=== PATIENT | female | born 1985 | race Caucasian/White ===

== ENCOUNTER 2018-10-31 12:39 | Inpatient (IN) | payer MEDICAID, OTHER ==
[2018-10-31] MEDS ORDERED: LACTATED RINGERS 500 ML IV ONE (13:02)
[2018-10-31 13:41] LABS: Bacteria,Urine 3+ /HPF (Negative); Bilirubin,Urine NEG (Negative); Blood,Urine NEG (Negative); Color,Urine Yellow (Yellow); Protein,Urine <15 mg/dL mg/dL (Negative); Urobilinogen,Urine < 2.0 mg/dL (<2.0)
[2018-10-31 14:06] LABS: Hematocrit 38.7 % (30.3-42.9); Hemoglobin 12.8 gm/dl (10.1-14.3); Mean Corpuscular HGB Conc 33 % (30-34); Mean Corpuscular Volume 91 fl (79-97); Red Blood Count 4.26 M/mm3 (3.65-5.03); Red Cell Distribution Width 15.6 % (13.2-15.2)
[2018-10-31 14:28] LABS: Alanine Aminotransferase 34 units/L (7-56); Uric Acid 5.6 mg/dL (3.5-7.6)
[2018-10-31 14:36] LABS: Platelet Count 143 K/mm3 (140-440)
[2018-10-31] MEDS ORDERED: BRETHINE SUB-Q PRN (15:02)
[2018-10-31] MEDS ORDERED: MINERAL OIL PO PRN (15:02)
[2018-10-31] MEDS ORDERED: BRETHINE IVP PRN (15:02)
[2018-10-31] MEDS ORDERED: XYLOCAINE 2% INFILTRATI ONE (15:02)
--- NOTE | 2018-10-31 15:19 | History and Physical Report ---
History of Present Illness Date of examination: 10/31/18 Date of admission: 10/31/18 Chief complaint: SIUP at 37 weeks and 4 days gestation not in labor. Cholestasis of . Previous C/section x 3. History of present illness: Patient is a 33 year old , LMP 02/10/18, EDC 11/17/18 at 37 weeks and 4 days gestation who was sent from [facility] for elevated BP and diffuse body itching. As per the patient, she started to have itching 2 weeks ag o that involves her palms and soles. Her bile acids were elevated 2 days ago. She also has gestational HTN. She denies any headache, visual changes or RUQ pain. She complains of decreased movement. Past History Past Medical History: no pertinent history Past Surgical History: section Family/Genetic History: none Social history: no significant social history - Obstetrical History Expected Date of Delivery: 11/17/18 Actual Gestation: 37 Week(s) 6 Day(s) : 4 Para: 3 Hx # Term Pregnancies: 2 Number of Pregnancies: 1 Number of Living Children: 3 #1 Gender: Male year: 2,[birth year] Birthweight: 1.956 kg Method of Delivery: (For pre-eclampsia) Gestational age at delivery: 35 #2 Infant Gender: Female year: 2,014 Birthweight: 3.43 kg Method of Delivery: Gestational age at delivery: 39 Complications: none #3 Gender: Male year: 2,016 Birthweight: 3.345 kg Method of Delivery: Gestational age at delivery: 39 Complications: none Medications and Allergies Allergies Allergy/AdvReac Type Severity Reaction Status Date / Time No Known Allergies Allergy Verified 10/26/18 14:49 Home Medications Medication Instructions Recorded Confirmed Last Taken Type No115/Iron/Folic Acid 1 tab PO DAILY 06/24/14 06/24/14 06/23/14 09:00 History [ 19 Chewable Tablet] Ibuprofen [Motrin 600 MG tab] 600 mg PO Q6H PRN #30 tablet 06/26/14 Unknown Rx oxyCODONE /ACETAMINOPHEN [Percocet 2 tab PO Q4H PRN #30 tablet 06/26/14 Unknown Rx 5/325 mg] Ferrous Sulfate [Feosol 325 MG tab] 325 mg PO BID #60 tablet 07/15/16 Unknown Rx Ibuprofen [Motrin 800 MG tab] 800 mg PO Q8HR PRN #30 tablet 07/15/16 Unknown Rx oxyCODONE /ACETAMINOPHEN [Percocet 1 tab PO Q6HR #30 tablet 07/15/16 Unknown Rx 5/325] Ferrous Sulfate [Feosol 325 MG tab] 325 mg PO BID #60 tablet 10/31/18 Unknown Rx HYDROcodone/APAP 5-325 [[place] 1 each PO Q6HR PRN #30 tablet 10/31/18 Unknown Rx 5/325] Ibuprofen [Motrin] 800 mg PO Q8HR PRN #30 tablet 10/31/18 Unknown Rx Pnv No.95/Ferrous Fum/Folic AC 1 each PO DAILY #30 tablet 10/31/18 Unknown Rx [Prenavite Tablet] Active Meds: Active Medications Lactated Ringer's (Lactated Ringers) 1,000 mls @ 125 mls/hr IV DIRECT FARHAD Oxytocin/Sodium Chloride (Pitocin/Ns 30 Unit/500ml) 30 units in 500 mls @ 1 mls/hr IV TITR FARHAD; Protocol Lidocaine (Xylocaine 2%) 20 ml INFILTRATI ONCE ONE Stop: 10/31/18 15:03 Mineral Oil (Mineral Oil) 30 ml PO QHS PRN PRN Reason: Constipation Terbutaline Sulfate (Brethine) 0.25 mg SUB-Q ONCE PRN PRN Reason: Hyperstimulation/Hypertonicity Terbutaline Sulfate (Brethine) 0.25 mg IVP ONCE PRN PRN Reason: Hyperstimulation/Hypertonicity - Vital Signs Vital signs: Vital Signs Pulse BP 83 127/87 10/31/18 13:15 10/31/18 13:15 Temp Pulse Resp BP Pulse Ox 98.1 F 81 20 124/74 10/31/18 13:17 10/31/18 14:15 10/31/18 13:17 10/31/18 14:15 - Physical Exam Cardiovascular: Normal S1, Normal S2 Lungs: Positive: Clear to auscultation Vulva: both: normal Deep Tendon Reflex Grade: Normal +2 - Obstetrical FHR: category 1 Uterine Contraction Monitor Mode: External Cervical Dilatation: 0 Cervical Effacement Percentage: 0 station: -3 Uterine Contraction Pattern: Absent Results Result Diagrams: 11/01/18 07:58 10/31/18 13:36 Abnormal lab results 10/31/18 10/31/18 Range/Units 13:36 13:36 RDW 15.6 H (13.2-15.2) % Creatinine 0.6 L (0.7-1.2) mg/dL Lactate Dehydrogenase 207 H (91-180) units/L All other labs normal. Assessment and Plan - Patient Problems (1) 37 weeks gestation of Current Visit: Yes Status: Acute (2) Cholestasis of Current Visit: Yes Status: Acute Plan to address problem: Admit patient to labor floor. IV hydration. Toxemia labs. Monitor BP. monitoring. Sonogram showed BPP 8/8. Patient was told that she has cholestasis of and she needs to be delivered since this diagnosis carries a high risk of demise regardless of normal surveillance. She is admitted for repeat C/section. Risk and benefits of the procedure were discussed with her such as infection, hemorrhage requiring blood transfusion, injury to the bowel, bladder and blood vessels. She expressed understanding, her questions were answered, she gave her informed co nsent. Keep NPO. (3) Gestational HTN Current Visit: Yes Status: Acute Plan to address problem: Monitor BP. If BP becomes unstable or patient develops signs of pre-eclampsia, will give magnesium sulfate. (4) Anemia Current Visit: No Status: Acute Qualifiers: Other causes of anemia: other cause, not classified (5) Previous section Current Visit: No Status: Acute Plan to address problem: For repeat C/section.
--- NOTE | 2018-10-31 15:21 | Ultrasound Report ---
OB LIMITED INDICATION: well being. Evaluate LOU. COMPARISON: None similar. TECHNIQUE: Transabdominal grayscale ultrasound with Doppler interrogation. Gestation: Patrick Position: Cephalic Amniotic Fluid: WNL (7-24 cm) LOU = 15.2 cm Heart Rate: 137 BPM CONCLUSION: Findings, as above.
--- NOTE | 2018-10-31 15:22 | Ultrasound Report ---
BIOPHYSICAL PROFILE: INDICATION: well being. COMPARISON: None similar at this institution. TECHNIQUE: Transabdominal ultrasound with Doppler interrogation. 2 - breathing movements 2 - movements 2 - posture and tone 2 - Qualitative amniotic fluid volume 8 - TOTAL SCORE OF POSSIBLE 8 Heart Rate (bpm) 137 CONCLUSION: Findings, as above.
[2018-10-31] MEDS ORDERED: LACTATED RINGERS 1,000 ML IV SCH ×3 (16:00→20:00)
[2018-10-31] MEDS ORDERED: PITOCin/NS 30 UNIT/500ML 30 UNITS/500 ML BAG IV SCH (16:00)
[2018-10-31] MEDS ORDERED: PEPCID IV ONE ×2 (17:34→19:20)
[2018-10-31] MEDS ORDERED: REGLAN IV ONE ×2 (17:34→19:20)
[2018-10-31] MEDS ORDERED: BICITRA PO ONE ×2 (17:34→19:20)
[2018-10-31] MEDS ORDERED: PITOCin/NS 20 UNIT/1000ML DRIP 20 UNITS/1,000 ML BAG IV SCH ×3 (18:00→21:00)
[2018-10-31] MEDS ORDERED: ANCEF/STERILE WATER 2 GM/20 ML 2 GM/20 ML SYRINGE IV ONE (19:24)
[2018-10-31] MEDS ORDERED: ANCEF/STERILE WATER 2 GM/20 ML 2 GM/20 ML SYRINGE IV NR (20:00)
[2018-10-31] MEDS ORDERED: ZOFRAN ONE (20:33)
[2018-10-31] MEDS ORDERED: DECADRON ONE (20:33)
[2018-10-31] MEDS ORDERED: NEO SYNEPHRINE/NS Syringe(OR USE) IV ONE (20:33)
--- NOTE | 2018-10-31 20:51 | Operative Report ---
Operative Report Operative Report: Date of procedure: 10/31/2018 Pre-operative diagnosis: 1. Intrauterine at 37-4/7 weeks 2. Choles tasis of 3. Previous 3 4. Gestational hypertension Post-operative diagnosis: Same Procedure name(s): Repeat low transverse section Surgeon: Vinod Wilkes MD Col[place] Gluer: None Anesthesia: Spinal anesthesia by Dr. Rodriguez EBL: 300 mls Findings: A 3259 g female Apgars 8 at 1 minute 9 at 5 minutes. Clear amniotic fluid. Nuchal cord 1. Normal uterus. Normal tubes and ovaries bilaterally. Procedure: After the patient was prepped and draped in usual sterile fashion, and after satisfactory level of epidural anesthesia was obtained, the skin knife was used to make a transverse skin incision through the previous skin scars. The incision was excised down to layer of the fascia, which was nicked in the midline and extended laterally using the Bovie cautery. The rectus muscles were dissected off the rectus fascia both superiorly and inferiorly. The rectus bellies in the midline, and the peritoneum was entered under direct visualization. The peritoneal incision was extended superiorly and inferiorly. A bladder flap was created and the bladder blade was then placed. The uterus was scored in a curvilinear linear fashion, entered in the midline revealing clear amniotic fluid. The 's head was delivered onto the surgical field with the aid of a vacuum, nuchal cord 1 easily reduced and the oropharynx and nasopharynx were bulb suctioned. The rest of the 's body was delivered, cord was doubly clamped and cut and the infant was handed to the waiting respiratory team. The placenta was manually removed from the uterus, and the uterus removed from its normal anatomical position. After gentle uterine lavage, the incision was inspected and found to be without extensions. It was then closed in 2 layers using 0 Vicryl suture in a running interlocking fashion, the second layer imbricating the first. After good hemostasis was achieved, copious amounts or irrigation was performed, and the gutters were suctioned free of blood and blood clots. The uterus was then returned to its normal anatomical position, and after excellent hemostasis assured, the peritoneum was re- approximated using 3-0 Vicryl suture in a running interlocking fashion, and then the rectus muscles were reapproximated using 3-0 Vicryl suture in a [id number] configuration. The fascia was then re-approximated using 0 Vicryl suture in running interlocking fashion. The subcutaneous layer was made hemostatic using Bovie cautery and the skin edges re-approximated using 4-0 Vicryl suture in a sub-cuticular fashion. Patient tolerated the procedure well was transported to recovery in stable condition.
[2018-10-31] MEDS ORDERED: MILK OF MAGNESIA PO PRN (20:54)
[2018-10-31] MEDS ORDERED: TUCKS PAD TP PRN (20:54)
[2018-10-31] MEDS ORDERED: NARCAN 0.4 MG/1 ML IV PRN (20:54)
[2018-10-31] MEDS ORDERED: PHENERGAN PR PRN (20:54)
[2018-10-31] MEDS ORDERED: ANUCORT-HC PR PRN (20:54)
[2018-10-31] MEDS ORDERED: MYLICON PO PRN (20:54)
[2018-10-31] MEDS ORDERED: TYLENOL PO PRN (20:54)
[2018-10-31] MEDS ORDERED: LANSINOH TP PRN (20:54)
[2018-10-31] MEDS ORDERED: SENOKOT PO PRN (20:54)
[2018-10-31] MEDS ORDERED: ZOFRAN IV PRN (20:54)
[2018-10-31] MEDS ORDERED: SODIUM CHLORIDE FLUSH SYRINGE 10 ML IV PRN (21:00)
[2018-10-31] MEDS: TORADOL IV PRN (22:27)
[2018-10-31] MEDS: D5LR 1,000 ML IV SCH (22:28)
[2018-11-01] MEDS: TORADOL IV PRN (03:17)
[2018-11-01] MEDS: ANCEF/NS 1 GM/50 ML 1 GM/50 ML BAG IV SCH ×2 (03:18→11:29)
[2018-11-01] MEDS: D5LR 1,000 ML IV SCH ×2 (06:11→14:52)
[2018-11-01 08:09] LABS: Hematocrit 37.2 % (30.3-42.9); Hemoglobin 12.4 gm/dl (10.1-14.3)
[2018-11-01] MEDS: PRENATAL VITAMIN PO SCH (10:01)
[2018-11-01] MEDS: FEOSOL PO SCH (10:01)
--- NOTE | 2018-11-01 10:20 | Progress Note ---
Assessment and Plan A: POD#1 s/p Repeat c/s Pain well controlled Stable P: Continue PP/PO orders Encouraged ambulation in room Advance diet as tolerated Subjective - Subjective Date of service: 11/01/18 Principal diagnosis: POD#1 s/p repeat C/S Interval history: See H&P and operative note Patient reports: appetite normal, voiding normally, pain well controlled, flatus, ambulating normally, no bowel movement : doing well, other (breast/bottle) Objective - Vital Signs Latest vital signs: Vital Signs Temp Pulse Resp BP BP Pulse Ox 11/01/18 08:06 98.6 F 64 18 140/72 96 11/01/18 04:56 97.9 F 71 16 136/72 96 11/01/18 03:17 18 10/31/18 22:27 18 10/31/18 22:02 98.7 F 94 H 20 150/86 98 10/31/18 21:44 90 18 154/78 100 10/31/18 21:34 98 F 94 H 17 152/82 100 10/31/18 21:19 97 H 16 151/80 100 10/31/18 21:14 101 H 18 137/60 100 10/31/18 21:09 101 H 18 143/77 100 10/31/18 21:04 98.2 F 104 H 14 141/80 100 10/31/18 18:02 86 160/88 10/31/18 14:15 81 124/74 10/31/18 13:59 78 119/78 10/31/18 13:45 92 H 118/75 10/31/18 13:29 87 128/88 10/31/18 13:17 98.1 F 83 20 127/87 10/31/18 13:15 83 127/87 Intake and Output 10/31/18 11/01/18 11/01/18 23:59 07:59 15:59 Intake Total 100 1204.583 360 Output Total 400 1300 Balance -300 -95.417 360 Intake: IV 100 964.583 D5lr 1,000 ml @ 125 mls/ 964.583 hr IV DIRECT FARHAD Rx#: [id number] Intake, Free Water 240 360 Output: Urine 400 1300 Indwelling Catheter 1300 Uretheral (Malcolm) 200 Other: Total, Output Amount 1300 - Exam Breasts: Present: normal, Cardiovascular: Present: Regular rate, Normal S1, Normal S2, No murmurs Lungs: Present: Clear to auscultation, Normal air movement Abdomen: Present: normal appearance, soft, tenderness (as expected Post-op), normal bowel sounds. Absent: distention Vulva: both: normal Uterus: Present: firm, fundal height at umbilicus Extremities: Present: normal Deep Tendon Reflex Grade: Normal +2 Incision: Present: normal, dry, intact, dressed (Pressure dressing CDI) - Labs Labs: Abnormal lab results 10/31/18 10/31/18 Range/Units 13:36 13:36 RDW 15.6 H (13.2-15.2) % Creatinine 0.6 L (0.7-1.2) mg/dL Lactate Dehydrogenase 207 H (91-180) units/L
[2018-11-01] MEDS: IBUPROFEN PO PRN ×3 (10:25→23:13)
[2018-11-01] MEDS: NORCO 5/325 PO PRN (14:52)
[2018-11-01] MEDS ORDERED: M-M-R II VACCINE SUB-Q ONE (20:56)
[2018-11-01] MEDS: PERCOCET 5/325 PO PRN (21:04)
[2018-11-02] MEDS: IBUPROFEN PO PRN ×3 (05:08→23:27)
[2018-11-02] MEDS ORDERED: BOOSTRIX IM ONE (06:00)
[2018-11-02] MEDS: FEOSOL PO SCH (10:24)
[2018-11-02] MEDS: PRENATAL VITAMIN PO SCH (10:24)
[2018-11-02] MEDS: NORCO 5/325 PO PRN (17:29)
--- NOTE | 2018-11-02 23:18 | Progress Note ---
Assessment and Plan A: /postop day 2 S/P repeat LTCS. Anemia. P: Supplement with iron. Encouraged ambulation. Subjective - Subjective Date of service: 11/02/18 Principal diagnosis: POD#2 s/p repeat C/S Patient reports: appetite normal, voiding normally, pain well controlled, flatus, ambulating normally, no dizzy ambulation, no nauseated [place]: doing well Objective - Vital Signs Latest vital signs: Vital Signs Temp Pulse Resp BP BP Pulse Ox 11/02/18 16:20 98.3 F 79 22 128/80 96 11/02/18 08:28 98.8 F 81 20 118/76 94 11/02/18 05:08 18 11/02/18 00:00 98.7 F 71 16 101/71 Intake and Output 11/02/18 11/02/18 11/02/18 07:59 15:59 23:59 Intake Total 200 360 240 Balance 200 360 240 Intake: Oral 200 360 240 Other: Total, Intake Amount 200 240 240 # Voids Void 1 1 - Exam Cardiovascular: Present: Regular rate, Normal S1, Normal S2 Lungs: Present: Clear to auscultation Abdomen: Present: normal appearance, soft, normal bowel sounds. Absent: distention, tenderness, guarding Uterus: Present: normal, firm, fundal height below umbilicus. Absent: bogginess, tenderness Extremities: Present: normal. Absent: tenderness, edema Incision: Present: normal, dry, intact
[2018-11-03] MEDS: IBUPROFEN PO PRN ×2 (05:20→17:07)
[2018-11-03] MEDS: PRENATAL VITAMIN PO SCH (11:35)
[2018-11-03] MEDS: FEOSOL PO SCH (11:35)
--- NOTE | 2018-11-03 16:55 | Progress Note ---
Assessment and Plan A: /postop day 3 S/P repeat LTCS. P: Discharge patient home today. discharge instructions and warning signs discussed in detail with patient. Advised patient re: care of incision and activity restrictions. Advised patient to avoid intercourse, lifting and heavy housework, driving, stair climbing. Advised patient to follow up at [facility] in 1 week for incision check; advised patient to call for appointment. MD has left Rx on chart for patient. Patient voiced understanding of all instructions. Subjective - Subjective Date of service: 11/03/18 Principal diagnosis: POD#3 s/p repeat C/S Interval history: /postop day 3 S/P repeat low transverse section. Patient is doing well; she desires discharge today. Patient reports a small amount of lochia. She is voiding without difficulty and ambulating well. Patient is tolerating a regular diet without nausea or vomiting. She is passing gas. Patient denies headache, cough, chest pain, abdominal pain, leg pain, or any other problems. Patient reports: appetite normal, voiding normally, pain well controlled, flatus, ambulating normally, no dizzy ambulation, no nauseated : doing well Objective - Vital Signs Latest vital signs: Vital Signs Temp Pulse Resp BP Pulse Ox 11/03/18 08:16 98.2 F 76 20 135/82 95 11/03/18 05:20 18 11/03/18 00:00 98.4 F 64 18 117/75 11/02/18 23:27 18 Intake and Output 11/03/18 11/03/18 11/03/18 07:59 15:59 23:59 Intake Total 600 Balance 600 Intake: Oral 600 Other: Total, Intake Amount 120 # Voids Void 1 - Exam Cardiovascular: Present: Regular rate, Normal S1, Normal S2, No murmurs Lungs: Present: Clear to auscultation Abdomen: Present: normal appearance, soft, normal bowel sounds. Absent: distention, tenderness, guarding, rigidity Uterus: Present: normal, firm, fundal height below umbilicus. Absent: bogginess, tenderness Extremities: Present: normal. Absent: tenderness, edema Incision: Present: normal, dry, intact
--- NOTE | 2018-11-03 16:58 | Discharge Summary ---
Providers - Providers Date of Admission: 10/31/18 16:33 Date of discharge: 11/03/18 Attending physician: KIERRA BENJAMIN MD None Primary care physician: KIERRA BENJAMIN MD Hospitalization Reason for admission: section Delivery: Procedure: repeat low transverse Incision: normal, dry, intact Other procedures: none complications: none Discharge diagnosis: IUP at term delivered [place] baby: female Pertinent studies: Labs Hospital course: Normal hospital course. Condition at discharge: Good Disposition: DC-01 TO HOME OR SELFCARE - Discharge Diagnoses (1) Term delivered Status: Acute Plan - Discharge Medications Prescriptions: Ferrous Sulfate [Feosol 325 MG tab] 325 mg PO BID #60 tablet HYDROcodone/APAP 5-325 [Bryan 5/325] 1 each PO Q6HR PRN #30 tablet PRN Reason: Pain Ibuprofen [Motrin] 800 mg PO Q8HR PRN #30 tablet PRN Reason: Moder Pain Unrelieved By Bryan Pnv No.95/Ferrous Fum/Folic AC [Prenavite Tablet] 1 each PO DAILY #30 tablet - Provider Discharge Summary Activity: routine, no sex for 6 weeks, no heavy lifting 4 weeks, no strenuous exercise Diet: routine Instructions: routine Additional instructions: Call your doctor immediately for: * Fever > 100.5 * Heavy vaginal bleeding ( >1 pad per hour) * Severe persistent headache * Shortness of breath * Reddened, hot, painful area to leg or breast * Drainage or odor from incision. * Keep incision clean and dry at all times and follow doctor's instructions regarding bathing/showering - Follow up plan Follow up: KIERRA BENJAMIN MD [Primary Care Provider] - 7 Days Forms: [facility] Discharge Summary
--- NOTE | 2018-11-03 19:10 | Event Note ---
Addendum entered and electronically signed by RUPESH HANSEN CNM 11/03/18 20:03: On recheck, BP was higher. Pt. was transferred back to L&D for possible preeclampsia. IV hydralazine ordered. Magnesium Sulfate ordered. Labetalol 200 mg po BID ordered. Consulted Dr. Mayfield regarding this patient. Dr. Mayfield states she is in agreement with transfer back to L&D and above plan. Original Note: Date: 11/03/18 Patient was going to be discharged today but right before discharge, BPs were elevated. Pt. denies headache, visual disturbance, nausea or vomiting, swelling, or epigastric pain. Stat labs ordered. Repeat BPs ordered. If elevated on next BP check, will start Labetalol. Discussed this plan with patient and her family.
[2018-11-03] MEDS ORDERED: APRESOLINE IV ONE (21:00)
[2018-11-03] MEDS ORDERED: MAGNESIUM SULFATE 4GM/100ML 4 GM/100 ML BAG IV ONE (21:00)
[2018-11-03 21:11] LABS: Hematocrit 39.4 % (30.3-42.9); Hemoglobin 12.9 gm/dl (10.1-14.3); Mean Corpuscular HGB Conc 33 % (30-34); Mean Corpuscular Volume 92 fl (79-97); Platelet Count 204 K/mm3 (140-440); Red Blood Count 4.28 M/mm3 (3.65-5.03)
[2018-11-03 21:33] LABS: Bacteria,Urine 1+ /HPF (Negative); Bilirubin,Urine NEG (Negative); Blood,Urine LG (Negative); Color,Urine Straw (Yellow); Mucus,Urine FEW /HPF; Protein,Urine <15 mg/dL mg/dL (Negative); Urobilinogen,Urine < 2.0 mg/dL (<2.0)
[2018-11-03 21:38] LABS: Alanine Aminotransferase 77 units/L (7-56); Albumin 3.1 g/dL (3.9-5); BUN/Creatinine Ratio 14; Blood Urea Nitrogen 7 mg/dL (7-17); Calcium 8.6 mg/dL (8.4-10.2); Hemolysis Index 13; Uric Acid 5.1 mg/dL (3.5-7.6)
[2018-11-03] MEDS: NORMODYNE PO SCH (21:43)
[2018-11-03] MEDS: LACTATED RINGERS 1,000 ML IV SCH (22:20)
[2018-11-03] MEDS: MAGNESIUM SULFATE 40GM/1000ML 40 GM/1,000 ML BAG IV SCH (22:54)
[2018-11-04] MEDS: LACTATED RINGERS 1,000 ML IV SCH ×2 (08:04→21:50)
[2018-11-04] MEDS: PRENATAL VITAMIN PO SCH (10:15)
[2018-11-04] MEDS: FEOSOL PO SCH (10:16)
[2018-11-04] MEDS: NORMODYNE PO SCH ×2 (10:16→22:03)
--- NOTE | 2018-11-04 13:40 | Progress Note ---
Assessment and Plan - Patient Problems (1) Status post repeat low transverse section Current Visit: No Status: Acute Plan to address problem: POD 4 Continue routine postop orders Ambulation encouraged after magnesium sulfate therapy Anticipate discharge in 24-48 hours (2) Pre-eclampsia added to pre-existing hypertension Current Visit: Yes Status: Acute Plan to address problem: BPs stable Magnesium sulfate therapy initiated 11/03/18 @ 22:20 Continue serial mag level, strict I&O, & DTRs per protocol Discontinue magnesium sulfate 11/04/18 @ 22:20 May transfer patient back to , if stable (3) Cholestasis of Current Visit: Yes Status: Acute Qualifiers: Trimester: third trimester Qualified Code(s): O26.613 - Liver and biliary tract disorders in , third trimester; K83.1 - Obstruction of bile duct Subjective - Subjective Date of service: 11/04/18 Principal diagnosis: POD#4; s/p Repeat LTCS, Cholestasis, Pre-eclampsia Patient reports: appetite normal, pain well controlled, flatus, bowel movement, other (schmidt catheter in place. Denies headache, visual disturbances or RUQ pain), no dizzy ambulation [place]: doing well, other (breast and bottle feeding) Objective - Vital Signs Latest vital signs: Vital Signs Temp Pulse Resp BP BP BP Pulse Ox 11/04/18 13:25 99 H 131/80 11/04/18 12:29 98.8 F 96 H 18 128/76 128/76 11/04/18 12:25 96 H 137/80 11/04/18 11:25 96 H 134/84 11/04/18 10:25 107 H 142/85 11/04/18 10:16 100 H 139/84 11/04/18 09:25 100 H 139/84 11/04/18 09:04 105 H 143/90 11/04/18 09:00 104 H 143/91 11/04/18 08:25 102 H 130/80 11/04/18 07:47 98.2 F 107 H 18 142/88 11/04/18 07:46 107 H 142/88 11/04/18 07:25 105 H 152/93 11/04/18 06:25 100 H 135/79 11/04/18 05:25 107 H 130/81 11/04/18 04:25 109 H 136/84 11/04/18 04:14 98.4 F 16 11/04/18 03:25 112 H 156/85 11/04/18 02:25 103 H 125/71 11/04/18 01:25 105 H 128/77 11/04/18 00:15 98.2 F 16 11/04/18 00:14 99 H 133/74 11/03/18 23:44 101 H 132/72 11/03/18 23:14 103 H 132/81 11/03/18 22:44 98 H 144/80 11/03/18 22:28 99 H 149/88 11/03/18 22:17 103 H 139/84 11/03/18 21:44 78 175/97 11/03/18 21:43 98.9 F 78 18 175/97 11/03/18 20:20 71 164/96 11/03/18 19:30 70 170/95 171/100 11/03/18 18:17 153/79 11/03/18 18:15 164/87 11/03/18 16:56 98.8 F 82 20 147/84 99 Intake and Output 11/03/18 11/04/18 11/04/18 23:59 07:59 15:59 Intake Total 730 Output Total 1100 1150 Balance -1100 -420 Intake: IV 730 Lactated Ringers 1,000 ml 730 @ 75 mls/hr IV DIRECT FARHAD Rx#:[id number] Output: Urine 1100 1150 Indwelling Catheter 1100 1150 Other: Total, Output Amount 300 400 - Exam Cardiovascular: Present: Regular rate Lungs: Present: Clear to auscultation Abdomen: Present: normal appearance, soft Vulva: both: normal Uterus: Present: normal, firm, fundal height below umbilicus Extremities: Present: normal Incision: Present: normal, dry, intact Comments: scant lochia - Labs Labs: Abnormal lab results 11/03/18 11/03/18 11/04/18 Range/Units 20:16 20:16 03:06 RDW 16.0 H (13.2-15.2) % Creatinine 0.5 L (0.7-1.2) mg/dL Magnesium 4.50 H (1.7-2.3) mg/dL AST 87 H (5-40) units/L ALT 77 H (7-56) units/L Alkaline Phosphatase 239 H (35-129) units/L Lactate Dehydrogenase 384 H (91-180) units/L Albumin 3.1 L (3.9-5) g/dL 11/04/18 Range/Units 08:55 RDW (13.2-15.2) % Creatinine (0.7-1.2) mg/dL Magnesium 5.50 H (1.7-2.3) mg/dL AST (5-40) units/L ALT (7-56) units/L Alkaline Phosphatase (35-129) units/L Lactate Dehydrogenase (91-180) units/L Albumin (3.9-5) g/dL
[2018-11-04] MEDS: MAGNESIUM SULFATE 40GM/1000ML 40 GM/1,000 ML BAG IV SCH (19:07)
[2018-11-04] MEDS ORDERED: APRESOLINE IV PRN (22:17)
[2018-11-05] MEDS: NORCO 5/325 PO PRN (02:32)
--- NOTE | 2018-11-05 10:23 | Progress Note ---
Assessment and Plan (1) Status post repeat low transverse section Current Visit: No Status: Acute Plan to address problem: POD 5 Continue routine /postop orders Ambulation encouraged Anticipate discharge pending repeat (2) Pre-eclampsia added to pre-existing hypertension Current Visit: Yes Status: Acute Plan to address problem: BPs stable s/p Magnesium sulfate therapy discontinued 11/04/18 @ 22:20 Co-managed with Dr. Tay MD: Repeat [facility] labs (3) Cholestasis of Current Visit: Yes Status: Acute Qualifiers: Trimester: third trimester Qualified Code(s): O26.613 - Liver and biliary tract disorders in , third trimester; K83.1 - Obstruction of bile duct Subjective - Subjective Date of service: 11/05/18 Principal diagnosis: POD#5; s/p Repeat LTCS, Cholestasis, Pre-eclampsia (s/p MgS04) Interval history: See H&P and operative note Patient reports: appetite normal, voiding normally, pain well controlled, flatus, ambulating normally, no bowel movement : doing well, other (breast and bottle ) Objective - Vital Signs Latest vital signs: Vital Signs Temp Pulse Resp BP BP Pulse Ox 11/05/18 07:48 98.6 F 86 16 138/86 97 11/05/18 06:24 98.2 F 86 18 141/87 97 11/05/18 02:32 16 11/05/18 01:55 98.6 F 89 16 134/86 98 11/04/18 23:35 96 H 123/75 11/04/18 23:33 98 H 124/75 11/04/18 22:30 164/101 11/04/18 22:25 90 157/90 11/04/18 22:05 93 H 168/103 11/04/18 22:03 93 H 151/100 11/04/18 21:56 93 H 151/100 11/04/18 21:48 95 H 148/94 11/04/18 21:46 91 H 152/94 11/04/18 21:29 89 141/83 11/04/18 21:25 94 H 146/83 11/04/18 20:36 98.9 F 18 11/04/18 20:25 99 H 150/87 11/04/18 19:25 100 H 152/87 11/04/18 18:25 97 H 154/85 11/04/18 17:25 96 H 132/82 11/04/18 16:25 91 H 135/80 11/04/18 16:18 98.0 F 94 H 18 142/82 11/04/18 16:17 94 H 142/82 11/04/18 15:25 100 H 134/79 11/04/18 14:25 96 H 128/80 11/04/18 14:21 95 H 127/76 11/04/18 13:25 99 H 131/80 11/04/18 12:29 98.8 F 96 H 18 128/76 128/76 11/04/18 12:25 96 H 137/80 11/04/18 11:25 96 H 134/84 11/04/18 10:25 107 H 142/85 11/04/18 10:16 100 H 139/84 Intake and Output 11/04/18 11/05/18 11/05/18 23:59 07:59 15:59 Intake Total 2957.5 Output Total 1925 Balance 1032.5 Intake: IV 1957.5 Lactated Ringers 1,000 ml 957.5 @ 75 mls/hr IV DIRECT FARHAD Rx#:[id number] MAGNESIUM SULFATE 40GM/ 1000 1000ML 40 gm In 1,000 ml @ 2 GM/HR 50 mls/hr IV DIRECT FARHAD Rx#:[id number] Oral 1000 Output: Urine 1924 Indwelling Catheter 1924 Other: Total, Intake Amount 200 Total, Output Amount 900 # Voids Void 1 - Exam Breasts: Present: normal, Cardiovascular: Present: Regular rate, Normal S1, Normal S2, No murmurs Lungs: Present: Clear to auscultation, Normal air movement Abdomen: Present: normal appearance, tenderness (as expected post-op), normal bowel sounds. Absent: distention Vulva: both: normal Uterus: Present: firm, fundal height at umbilicus Extremities: Present: normal Deep Tendon Reflex Grade: Normal +2 Incision: Present: normal, dry, intact, dressed (Pressure dressing removed, LTCS closed with leonie and steri strips. Old brown blood noted. no active bleeding )
[2018-11-05 10:57] LABS: Alanine Aminotransferase 102 units/L (7-56); Albumin 3.2 g/dL (3.9-5)
[2018-11-05 11:01] LABS: Bilirubin,Direct < 0.2 mg/dL (0-0.2)
[2018-11-05] MEDS: NORMODYNE PO SCH ×2 (11:40→21:56)
[2018-11-05] MEDS: PRENATAL VITAMIN PO SCH (11:40)
[2018-11-05] MEDS: FEOSOL PO SCH (11:40)
--- NOTE | 2018-11-05 14:37 | Event Note ---
Discussed blood pressures with patient's RN, Nika. BP 140/90s. Decision to add Procardia 30m XL and recheck BP in 2 hours. Also noted HELLP labs trending down. Laboratory Results - last 24 hr 11/05/18 11/05/18 10:16 10:16 Plt Count 293 Total Bilirubin 0.40 Direct Bilirubin < 0.2 AST 79 H ALT 102 H Alkaline Phosphatase 175 H Lactate Dehydrogenase 371 H Total Protein 6.9 Albumin 3.2 L Albumin/Globulin Ratio 0.9 Laboratory Results - last 72 hr 11/03/18 11/03/18 11/03/18 20:16 20:16 20:59 WBC 10.0 RBC 4.28 Hgb 12.9 Hct 39.4 MCV 92 MCH 30 MCHC 33 RDW 16.0 H Plt Count 204 Sodium 139 Potassium 4.2 Chloride 103.1 Carbon Dioxide 24 Anion Gap 16 BUN 7 Creatinine 0.5 L Estimated GFR > 60 BUN/Creatinine Ratio 14 Glucose 95 Uric Acid 5.1 Calcium 8.6 Magnesium Total Bilirubin 0.20 Direct Bilirubin AST 87 H ALT 77 H Alkaline Phosphatase 239 H Lactate Dehydrogenase 384 H Total Protein 6.5 Albumin 3.1 L Albumin/Globulin Ratio 0.9 Urine Color Straw Urine Turbidity Clear Urine pH 6.0 Ur Specific [place] 1.004 Urine Protein <15 mg/dl Urine Glucose (UA) Neg Urine Ketones Neg Urine Blood Lg Urine Nitrite Neg Urine Bilirubin Neg Urine Urobilinogen < 2.0 Ur Leukocyte Esterase Neg Urine WBC (Auto) 4.0 Urine RBC (Auto) 55.0 U Epithel Cells (Auto) 1.0 Urine Bacteria (Auto) 1+ Urine Mucus Few 11/04/18 11/04/18 11/05/18 03:06 08:55 10:16 WBC RBC Hgb Hct MCV MCH MCHC RDW Plt Count 293 Sodium Potassium Chloride Carbon Dioxide Anion Gap BUN Creatinine Estimated GFR BUN/Creatinine Ratio Glucose Uric Acid Calcium Magnesium 4.50 H 5.50 H Total Bilirubin Direct Bilirubin AST ALT Alkaline Phosphatase Lactate Dehydrogenase Total Protein Albumin Albumin/Globulin Ratio Urine Color Urine Turbidity Urine pH Ur Specific [place] Urine Protein Urine Glucose (UA) Urine Ketones Urine Blood Urine Nitrite Urine Bilirubin Urine Urobilinogen Ur Leukocyte Esterase Urine WBC (Auto) Urine RBC (Auto) U Epithel Cells (Auto) Urine Bacteria (Auto) Urine Mucus 11/05/18 10:16 WBC RBC Hgb Hct MCV MCH MCHC RDW Plt Count Sodium Potassium Chloride Carbon Dioxide Anion Gap BUN Creatinine Estimated GFR BUN/Creatinine Ratio Glucose Uric Acid Calcium Magnesium Total Bilirubin 0.40 Direct Bilirubin < 0.2 AST 79 H ALT 102 H Alkaline Phosphatase 175 H Lactate Dehydrogenase 371 H Total Protein 6.9 Albumin 3.2 L Albumin/Globulin Ratio 0.9 Urine Color Urine Turbidity Urine pH Ur Specific [place] Urine Protein Urine Glucose (UA) Urine Ketones Urine Blood Urine Nitrite Urine Bilirubin Urine Urobilinogen Ur Leukocyte Esterase Urine WBC (Auto) Urine RBC (Auto) U Epithel Cells (Auto) Urine Bacteria (Auto) Urine Mucus Plan Recheck BP 2hrs on new medicine. If stable will discharge home with followup in 2 days outpatient. Recheck liver enzymes . [facility] made aware.
[2018-11-05] MEDS ORDERED: PROCARDIA XL PO SCH (15:00)
[2018-11-05] MEDS ORDERED: NORMODYNE PO ONE (18:04)
--- NOTE | 2018-11-05 18:07 | Event Note ---
Called by nursing staff to report BP 160/100s after Procardia 30mg XL. Patient also felt faint after medicine. Decision to increase Labetolol and stop Procardia. Will order medicine consult for uncontrollable blood pressures, elevated liver function tests, history of intrahepatic cholestasis of . Discharge held while patient is being evaluated.
[2018-11-05 20:23] LABS: Hepatitis B Surface Antigen Non-Reactive (Negative); Hepatitis C Virus Antibody Non-Reactive (NonReactive)
--- NOTE | 2018-11-05 20:39 | Consultation ---
History of Present Illness - Reason for Consult Consult date: 11/05/18 hypertension Requesting physician: KARRIE BROWN - History of Present Illness 33 YO Female with Obesity, Gestational HTN. Consult placed by Dr. Brown for hypertension. Pt seen and evaluated in her room. Pt denies fever, chills, CP, Palpitations, NVD, Trauma, unilateral leg swelling, unintentional weight loss, night sweats, skin rash or difficulty swallowing. No reported nursing events. Past History Past Medical History: hypertension, other (Obesity) Past Surgical History: Social history: no significant social history, , lives with family Family history: hypertension Medications and Allergies Allergies Allergy/AdvReac Type Severity Reaction Status Date / Time No Known Allergies Allergy Verified 10/26/18 14:49 Home Medications Medication Instructions Recorded Confirmed Last Taken Type No115/Iron/Folic Acid 1 tab PO DAILY 06/24/14 06/24/14 06/23/14 09:00 History [ 19 Chewable Tablet] Ibuprofen [Motrin 600 MG tab] 600 mg PO Q6H PRN #30 tablet 06/26/14 Unknown Rx oxyCODONE /ACETAMINOPHEN [Percocet 2 tab PO Q4H PRN #30 tablet 06/26/14 Unknown Rx 5/325 mg] Ferrous Sulfate [Feosol 325 MG tab] 325 mg PO BID #60 tablet 07/15/16 Unknown Rx Ibuprofen [Motrin 800 MG tab] 800 mg PO Q8HR PRN #30 tablet 07/15/16 Unknown Rx oxyCODONE /ACETAMINOPHEN [Percocet 1 tab PO Q6HR #30 tablet 07/15/16 Unknown Rx 5/325] Ferrous Sulfate [Feosol 325 MG tab] 325 mg PO BID #60 tablet 10/31/18 Unknown Rx HYDROcodone/APAP 5-325 [[place] 1 each PO Q6HR PRN #30 tablet 10/31/18 Unknown Rx 5/325] Ibuprofen [Motrin] 800 mg PO Q8HR PRN #30 tablet 10/31/18 Unknown Rx Pnv No.95/Ferrous Fum/Folic AC 1 each PO DAILY #30 tablet 10/31/18 Unknown Rx [Prenavite Tablet] Labetalol [Normodyne TAB] 200 mg PO BID 30 Days #60 tablet 11/05/18 Unknown Rx Active Meds: Active Medications Acetaminophen (Tylenol) 650 mg PO Q4H PRN PRN Reason: Fever >100.5/NAVARRO Acetaminophen/Hydrocodone Bitart ([place] 5/325) 1 each PO Q4H PRN PRN Reason: Pain, Moderate (4-6) Last Admin: 11/05/18 02:32 Dose: 1 each Documented by: Ferrous Sulfate (Feosol) 325 mg PO QDAY [facility] Last Admin: 11/05/18 11:40 Dose: 325 mg Documented by: Hydralazine HCl (Apresoline) 5 mg IV Q30MIN PRN PRN Reason: Blood Pressure Last Admin: 11/04/18 22:30 Dose: 5 mg Documented by: Hydrocortisone Acetate (Anucort-Hc) 25 mg IN BID PRN PRN Reason: Hemorrhoids Oxytocin/Sodium Chloride (Pitocin/Ns 20 Unit/1000ml Drip) 20 units in 1,000 mls @ 250 mls/hr IV DIRECT FARHAD Lactated Ringer's (Lactated Ringers) 1,000 mls @ 75 mls/hr IV DIRECT [facility] Last Admin: 11/04/18 21:50 Dose: 75 mls/hr Documented by: Ketorolac Tromethamine (Toradol) 30 mg IV Q6H PRN PRN Reason: Pain, Moderate (4-6) Stop: 11/05/18 20:53 Last Admin: 11/01/18 03:17 Dose: 30 mg Documented by: Labetalol HCl (Normodyne) 200 mg PO BID [facility] Last Admin: 11/05/18 11:40 Dose: 200 mg Documented by: Multi-Ingredient Ointment (Lansinoh) 1 applic TP PRN PRN PRN Reason: dryness/cracking Multivitamins/Iron/Calcium ( Vitamin) 1 each PO QDAY [facility] Last Admin: 11/05/18 11:40 Dose: 1 each Documented by: Naloxone HCl (Narcan 0.4 Mg/1 Ml) 0.1 mg IV Q2MIN PRN PRN Reason: Res Rate </= 8 or 02 SAT < 92% Ondansetron HCl (Zofran) 4 mg IV Q8H PRN PRN Reason: Nausea And Vomiting Oxycodone/Acetaminophen (Percocet 5/325) 2 tab PO Q6H PRN PRN Reason: Pain, Moderate (4-6) Last Admin: 11/01/18 21:04 Dose: 2 tab Documented by: Promethazine HCl (Phenergan) 25 mg IN Q6H PRN PRN Reason: N/V IF NPO AND NO IV ACCESS Senna (Senokot) 17.2 mg PO QHS PRN PRN Reason: Constipation Last Admin: 11/05/18 02:31 Dose: 17.2 mg Documented by: Simethicone (Mylicon) 80 mg PO Q6H PRN PRN Reason: Gas pain Last Admin: 11/01/18 21:04 Dose: 80 mg Documented by: Sodium Chloride (Sodium Chloride Flush Syringe 10 Ml) 10 ml IV PRN PRN PRN Reason: LINE FLUSH Witch Radha/Glycerin (Tucks Pad) 1 each TP PRN PRN PRN Reason: Hemorrhoids/cleansing/soothing Review of Systems All systems: negative Exam - Constitutional Vitals: Temp Pulse Resp BP Pulse Ox 98.5 F 94 H 16 147/99 98 11/05/18 17:29 11/05/18 18:18 11/05/18 18:18 11/05/18 18:18 11/05/18 18:18 General appearance: Present: no acute distress, well-nourished - EENT Eyes: Present: PERRL ENT: hearing intact, clear oral mucosa - Neck Neck: Present: supple, normal ROM - Respiratory Respiratory effort: normal Respiratory: bilateral: CTA - Cardiovascular Heart Sounds: Present: S1 & S2. Absent: rub, click - Extremities Extremities: pulses symmetrical, No edema Peripheral Pulses: within normal limits - Abdominal General gastrointestinal: Present: soft, non-tender, non-distended, normal bowel sounds Female genitourinary: Present: normal - Integumentary Integumentary: Present: clear, warm, dry - Musculoskeletal Musculoskeletal: gait normal, strength equal bilaterally - Psychiatric Psychiatric: appropriate mood/affect, intact judgment & insight - Neurologic Neurologic: CNII-XII intact, moves all extremities Results - Labs CBC & Chem 7: 11/05/18 10:16 11/03/18 20:16 Labs: Abnormal lab results 11/05/18 Range/Units 10:16 AST 79 H (5-40) units/L ALT 102 H (7-56) units/L Alkaline Phosphatase 175 H (35-129) units/L Lactate Dehydrogenase 371 H (91-180) units/L Albumin 3.2 L (3.9-5) g/dL Assessment and Plan - Patient Problems (1) HTN (hypertension) Current Visit: Yes Status: Acute Qualifiers: Hypertension type: essential hypertension Qualified Code(s): I10 - Essential (primary) hypertension Plan to address problem: Monitor BP q shift, add hydralazine 25mg PO TID,
[2018-11-06] MEDS ORDERED: APRESOLINE IV PRN (08:00)
[2018-11-06] MEDS: APRESOLINE PO SCH ×3 (08:25→21:15)
[2018-11-06 08:32] LABS: Amphetamine Screen,Urine PRESUMPTIVE NEGATIVE; Benzodiazepines Screen,Urine PRESUMPTIVE NEGATIVE; Cannabinoid Screen,Urine PRESUMPTIVE NEGATIVE; Cocaine Screen,Urine PRESUMPTIVE NEGATIVE; Methadone Screen,Urine PRESUMPTIVE NEGATIVE; Opiate Screen,Urine PRESUMPTIVE NEGATIVE
[2018-11-06] MEDS: NORMODYNE PO SCH ×2 (10:00→11:26)
[2018-11-06] MEDS: FEOSOL PO SCH (10:28)
[2018-11-06] MEDS: PRENATAL VITAMIN PO SCH (10:28)
[2018-11-06] MEDS ORDERED: NORMODYNE IV ONE (10:30)
--- NOTE | 2018-11-06 16:46 | Progress Note ---
Assessment and Plan - Patient Problems (1) 37 weeks gestation of Current Visit: Yes Status: Acute (2) Cholestasis of Current Visit: Yes Status: Acute Qualifiers: Trimester: third trimester Qualified Code(s): O26.613 - Liver and biliary tract disorders in , third trimester; K83.1 - Obstruction of bile duct (3) Anemia Current Visit: No Status: Acute Qualifiers: Other causes of anemia: other cause, not classified (4) Previous section Current Visit: No Status: Acute (5) delivery delivered Current Visit: Yes Status: Acute Plan to address problem: Continue routine postop care. (6) HTN (hypertension) Current Visit: Yes Status: Acute Qualifiers: Hypertension type: essential hypertension Qualified Code(s): I10 - E ssential (primary) hypertension Plan to address problem: BP still uncontrolled. Patient is asymptomatic. Medical consult was done. Continue labetolol 300 mg BID. Will add norvasc. Subjective - Subjective Date of service: 11/06/18 Principal diagnosis: POD#6; s/p Repeat LTCS, Cholestasis, Pre-eclampsia (s/p MgS04) Interval history: Patient is a 33 year old who is S/P C/section at 37 weeks and 4 days gestation due to cholestasis of . She also had gestational HTN but her BP was stable and her toxemia labs were normal on admission. After the delivery, she became pre-eclamptic and was treated with magnesium for 24 hrs. She has been on labetolol and her BP was hard to control. Medical consult was called. Apresoline PO TID was added. Her BP remained elevated in the 150's/90-100's. Labetolol 20 mg IV was given with good response. Labetolol PO dose was increased to 300 mg BID. She denies any headache or visual changes. She is no longer itching. She is tolerating regular diet and moving her bowel. Objective - Vital Signs Latest vital signs: Vital Signs Temp Pulse Resp BP BP BP Pulse Ox 11/06/18 14:31 138/90 11/06/18 12:07 98.9 F 81 20 136/91 97 11/06/18 11:11 82 155/97 11/06/18 10:50 74 154/100 11/06/18 10:43 71 153/91 11/06/18 10:35 74 155/91 11/06/18 10:28 150/100 11/06/18 09:54 150/102 11/06/18 08:22 98.1 F 73 20 141/80 91 11/06/18 06:17 81 141/92 97 11/06/18 04:28 98.2 F 90 16 154/94 98 11/06/18 00:18 98.9 F 75 18 149/89 96 11/05/18 21:56 91 H 154/94 11/05/18 21:31 91 H 16 154/94 98 11/05/18 18:18 94 H 16 147/99 98 11/05/18 18:15 161/100 11/05/18 17:29 98.5 F 91 H 20 161/100 98 Intake and Output 11/06/18 11/06/18 11/06/18 07:59 15:59 23:59 Intake Total 500 Balance 500 Intake: Oral 500 Other: Total, Intake Amount 500 # Voids Void 4 - Exam Cardiovascular: Present: Normal S1, Normal S2 Lungs: Present: Clear to auscultation Vulva: both: normal Deep Tendon Reflex Grade: Normal +2
[2018-11-06 17:30] LABS: Hematocrit 39.9 % (30.3-42.9); Mean Corpuscular HGB Conc 33 % (30-34); Mean Corpuscular Volume 92 fl (79-97); Platelet Count 327 K/mm3 (140-440); Red Blood Count 4.33 M/mm3 (3.65-5.03); Red Cell Distribution Width 16.4 % (13.2-15.2)
[2018-11-06] MEDS: NORVASC PO SCH (17:38)
[2018-11-06 17:48] LABS: Alanine Aminotransferase 72 units/L (7-56); Uric Acid 5.7 mg/dL (3.5-7.6)
--- NOTE | 2018-11-06 18:02 | Progress Note ---
Assessment and Plan Assessment and plan: --Hypertension; uncontrolled Continue labetalol, increase hydralazine to 50 mg 3 times a day When necessary IV hydralazine 10 mg for blood pressure more than 150/90 PROPRIETARY TRADER added Norvasc 10 mg daily Closely monitor the blood pressures and adjust the medications as needed Plan of care reviewed with the patient and her nurse History Interval history: Patient seen and examined medical records reviewed Patient feels better no new complaints Vital signs reviewed Blood pressure uncontrolled Hospitalist Physical - Constitutional Vitals: Temp Pulse Resp BP Pulse Ox 98.9 F 81 20 138/90 97 11/06/18 12:07 11/06/18 12:07 11/06/18 12:07 11/06/18 14:31 11/06/18 12:07 General appearance: Present: no acute distress, well-nourished - EENT Eyes: Present: PERRL, EOM intact - Neck Neck: Present: supple, normal ROM - Respiratory Respiratory effort: normal Respiratory: bilateral: diminished, negative: rales, rhonchi, wheezing - Cardiovascular Rhythm: regular Heart Sounds: Present: S1 & S2 - Extremities Extremities: no ischemia, No edema - Abdominal General gastrointestinal: soft, non-tender, non-distended, normal bowel sounds - Integumentary Integumentary: Present: clear, warm - Psychiatric Psychiatric: appropriate mood/affect, cooperative - Neurologic Neurologic: CNII-XII intact, moves all extremities Results - Labs CBC & Chem 7: 11/06/18 16:56 11/06/18 16:56 Labs: Laboratory Last Values WBC 9.9 K/mm3 (4.5-11.0) 11/06/18 16:56 RBC 4.33 M/mm3 (3.65-5.03) 11/06/18 16:56 Hgb 13.0 gm/dl (10.1-14.3) 11/06/18 16:56 Hct 39.9 % (30.3-42.9) 11/06/18 16:56 MCV 92 fl (79-97) 11/06/18 16:56 MCH 30 pg (28-32) 11/06/18 16:56 MCHC 33 % (30-34) 11/06/18 16:56 RDW 16.4 % (13.2-15.2) H 11/06/18 16:56 Plt Count 327 K/mm3 (140-440) 11/06/18 16:56 Sodium 139 mmol/L (137-145) 11/03/18 20:16 Potassium 4.2 mmol/L (3.6-5.0) 11/03/18 20:16 Chloride 103.1 mmol/L (98-107) 11/03/18 20:16 Carbon Dioxide 24 mmol/L (22-30) 11/03/18 20:16 Anion Gap 16 mmol/L 11/03/18 20:16 BUN 7 mg/dL (7-17) 11/03/18 20:16 Creatinine 0.5 mg/dL (0.7-1.2) L 11/06/18 16:56 Estimated GFR > 60 ml/min 11/06/18 16:56 BUN/Creatinine Ratio 14 % 11/03/18 20:16 Glucose 95 mg/dL (65-100) 11/03/18 20:16 Uric Acid 5.7 mg/dL (3.5-7.6) 11/06/18 16:56 Calcium 8.6 mg/dL (8.4-10.2) 11/03/18 20:16 Magnesium 5.50 mg/dL (1.7-2.3) H 11/04/18 08:55 Total Bilirubin 0.40 mg/dL (0.1-1.2) 11/05/18 10:16 Direct Bilirubin < 0.2 mg/dL (0-0.2) 11/05/18 10:16 AST 41 units/L (5-40) H 11/06/18 16:56 ALT 72 units/L (7-56) H 11/06/18 16:56 Alkaline Phosphatase 175 units/L (35-129) H 11/05/18 10:16 Lactate Dehydrogenase 285 units/L (91-180) H 11/06/18 16:56 Total Protein 6.9 g/dL (6.3-8.2) 11/05/18 10:16 Albumin 3.2 g/dL (3.9-5) L 11/05/18 10:16 Albumin/Globulin Ratio 0.9 % 11/05/18 10:16 Urine Color Straw (Yellow) 11/03/18 20:59 Urine Turbidity Clear (Clear) 11/03/18 20:59 Urine pH 6.0 (5.0-7.0) 11/03/18 20:59 Ur Specific [place] 1.004 (1.003-1.030) 11/03/18 20:59 Urine Protein <15 mg/dl mg/dL (Negative) 11/03/18 20:59 Urine Glucose (UA) Neg mg/dL (Negative) 11/03/18 20:59 Urine Ketones Neg mg/dL (Negative) 11/03/18 20:59 Urine Blood Lg (Negative) 11/03/18 20:59 Urine Nitrite Neg (Negative) 11/03/18 20:59 Urine Bilirubin Neg (Negative) 11/03/18 20:59 Urine Urobilinogen < 2.0 mg/dL (<2.0) 11/03/18 20:59 Ur Leukocyte Esterase Neg (Negative) 11/03/18 20:59 Urine WBC (Auto) 4.0 /HPF (0.0-6.0) 11/03/18 20:59 Urine RBC (Auto) 55.0 /HPF (0.0-6.0) 11/03/18 20:59 U Epithel Cells (Auto) 1.0 /HPF (0-13.0) 11/03/18 20:59 Urine Bacteria (Auto) 1+ /HPF (Negative) 11/03/18 20:59 Urine Mucus Few /HPF 11/03/18 20:59 Urine Opiates Screen Presumptive negative 11/06/18 08:00 Urine Methadone Screen Presumptive negative 11/06/18 08:00 Ur Barbiturates Screen Presumptive negative 11/06/18 08:00 Ur Phencyclidine Scrn Presumptive negative 11/06/18 08:00 Ur Amphetamines Screen Presumptive negative 11/06/18 08:00 U Benzodiazepines Scrn Presumptive negative 11/06/18 08:00 Urine Cocaine Screen Presumptive negative 11/06/18 08:00 U Marijuana (THC) Screen Presumptive negative 11/06/18 08:00 Drugs of Abuse Note Disclamer 11/06/18 08:00 Hepatitis A IgM Ab Non-reactive (NonReactive) 11/05/18 19:43 Hep Bs Antigen Non-reactive (Negative) 11/05/18 19:43 Hep B Core IgM Ab Non-reactive (NonReactive) 11/05/18 19:43 Hepatitis C Antibody Non-reactive (NonReactive) 11/05/18 19:43 Blood Type O POSITIVE 10/31/18 18:30 Antibody Screen Negative 10/31/18 18:30
[2018-11-07] MEDS: NORMODYNE PO SCH ×2 (02:00→10:26)
[2018-11-07] MEDS: PERCOCET 5/325 PO PRN (02:00)
[2018-11-07] MEDS: APRESOLINE PO SCH (07:57)
[2018-11-07] MEDS: PRENATAL VITAMIN PO SCH (10:22)
[2018-11-07] MEDS: FEOSOL PO SCH (10:22)
[2018-11-07] MEDS: NORVASC PO SCH (10:23)
--- NOTE | 2018-11-07 11:31 | Progress Note ---
Assessment and Plan - Patient Problems (1) 37 weeks gestation of Current Visit: Yes Status: Acute (2) Cholestasis of Current Visit: Yes Status: Acute Qualifiers: Trimester: third trimester Qualified Code(s): O26.613 - Liver and biliary tract disorders in , third trimester; K83.1 - Obstruction of bile duct (3) Anemia Current Visit: No Status: Acute Qualifiers: Other causes of anemia: other cause, not classified (4) Previous section Current Visit: No Status: Acute (5) delivery delivered Current Visit: Yes Status: Acute Plan to address problem: Continue routine postop care. (6) HTN (hypertension) Current Visit: Yes Status: Acute Qualifiers: Hypertension type: essential hypertension Qualified Code(s): I10 - E ssential (primary) hypertension Plan to address problem: BP is better today. Patient is asymptomatic. Medical consult was done. Patient is stable. Will discharge her home on labetolol 300 mg BID and norvasc 10 mg QD. Patient to follow with [facility] in days for BP check and with primary care after 6 weeks. Subjective - Subjective Date of service: 11/07/18 Principal diagnosis: POD#6; s/p Repeat LTCS, Cholestasis, Pre-eclampsia (s/p MgS04) Interval history: Patient is a 33 year old who is S/P C/section at 37 weeks and 4 days gestation due to cholestasis of . She also had gestational HTN but her BP was stable and her toxemia labs were normal on admission. After the delivery, she became pre-eclamptic and was treated with magnesium for 24 hrs. She has been on labetolol and her BP was hard to control. Medical consult was called. Apresoline PO TID was added. Her BP remained elevated in the 150's/90-100's. Labetolol 20 mg IV was given with good response. Labetolol PO dose was increased to 300 mg BID. She denies any headache or visual changes. She is no longer itching. She is tolerating regular diet and moving her bowel. Today, she denies a y complaint. Norvasc was added yesterday for BP control. Objective - Vital Signs Latest vital signs: Vital Signs Temp Pulse Resp BP BP BP Pulse Ox 11/07/18 10:26 80 135/87 11/07/18 10:23 80 135/87 02/07/19 07:57 146/88 11/07/18 07:50 97.9 F 78 18 115/88 11/07/18 03:54 98.9 F 77 18 139/82 11/07/18 02:00 137/83 11/07/18 00:35 98.5 F 77 18 137/86 11/06/18 21:15 143/87 11/06/18 19:49 98.6 F 79 16 146/85 11/06/18 16:43 99.1 F 74 20 151/93 99 11/06/18 16:42 166/100 11/06/18 14:31 138/90 11/06/18 12:07 98.9 F 81 20 136/91 97 Intake and Output 11/06/18 11/07/18 11/07/18 23:59 07:59 15:59 Intake Total 240 800 Balance 240 800 Intake: Oral 320 Intake, Free Water 240 480 Other: Total, Intake Amount 320 # Voids Void 2 1 - Exam Cardiovascular: Present: Normal S1, Normal S2 Lungs: Present: Clear to auscultation Vulva: both: normal Deep Tendon Reflex Grade: Normal +2 - Labs Labs: Abnormal lab results 11/06/18 11/06/18 Range/Units 16:56 16:56 RDW 16.4 H (13.2-15.2) % Creatinine 0.5 L (0.7-1.2) mg/dL AST 41 H (5-40) units/L ALT 72 H (7-56) units/L Lactate Dehydrogenase 285 H (91-180) units/L
--- NOTE | 2018-11-07 11:36 | Discharge Summary ---
Providers - Providers Date of Admission: 10/31/18 16:33 Attending physician: KIERRA BENJAMIN MD 11/05/18 18:13 Consult to Physician [CONS] Urgent Comment: also history of cholestasis of Consulting Provider: SIXTO ROJAS Physician Instructions: patient is s/p magnesium sulfate for preeclampsia Reason For Exam: uncontrolled blood pressures, elevated LFTs Primary care physician: KIERRA BENJAMIN MD Hospitalization Reason for admission: other (Cholestasis of , pre-eclampsia.) Delivery: Procedure: repeat low transverse Hospital course: Patient is a 33 year old who is S/P C/section at 37 weeks and 4 days gestation due to cholestasis of . She also had gestational HTN but her BP was stable and her toxemia labs were normal on admission. After the delivery, she became pre-eclamptic and was treated with magnesium for 24 hrs. She has been on labetolol and her BP was hard to control. Medical consult was called. Apresoline PO TID was added. Her BP remained elevated in the 150's/90-100's. Labetolol 20 mg IV was given with good response. Labetolol PO dose was increased to 300 mg BID. She denies any headache or visual changes. She is no longer itching. She is tolerating regular diet and moving her bowel. Today, she denies a y complaint. Norvasc was added yesterday for BP control. Objective Condition at discharge: Stable Disposition: - TO HOME OR SELFCARE - Discharge Diagnoses (1) 37 weeks gestation of Status: Acute (2) Cholestasis of Status: Acute Qualifiers: Trimester: third trimester Qualified Code(s): O26.613 - Liver and biliary tract disorders in , third trimester; K83.1 - Obstruction of bile duct (3) Anemia Status: Acute Qualifiers: Other causes of anemia: other cause, not classified Comment: blood loss from repeat c/s (4) Previous section Status: Acute (5) delivery delivered Status: Acute (6) HTN (hypertension) Status: Acute Qualifiers: Hypertension type: essential hypertension Qualified Code(s): I10 - Essential (primary) hypertension Plan - Discharge Medications Prescriptions: Amlodipine Besylate [Norvasc] 10 mg PO QDAY #30 tablet Ferrous Sulfate [Feosol 325 MG tab] 325 mg PO BID #60 tablet HYDROcodone/APAP 5-325 [Gill 5/325] 1 each PO Q6HR PRN #30 tablet PRN Reason: Pain Ibuprofen [Motrin] 800 mg PO Q8HR PRN #30 tablet PRN Reason: Moder Pain Unrelieved By Gill Labetalol [Normodyne TAB] 200 mg PO BID 30 Days #60 tablet Labetalol [Normodyne TAB] 300 mg PO BID #60 tablet Pnv No.95/Ferrous Fum/Folic AC [Prenavite Tablet] 1 each PO DAILY #30 tablet - Provider Discharge Summary Activity: no sex for 6 weeks, no heavy lifting 4 weeks, no strenuous exercise Diet: routine Instructions: routine Additional instructions: [] Smoking cessation referral if applicable(refer to patient education folder for contact #) [] Refer to [facility] Booklet Call your doctor immediately for: * Fever > 100.5 * Heavy vaginal bleeding ( >1 pad per hour) * Severe persistent headache * Shortness of breath * Reddened, hot, painful area to leg or breast * Drainage or odor from incision. * Keep incision clean and dry at all times and follow doctor's instructions regarding bathing/showering - Follow up plan Follow up: KIERRA BENJAMIN MD [Primary Care Provider] - 7 Days Forms: [facility] Discharge Summary
[2018-11-07 13:19] VITALS: BP 131/85
--- NOTE | 2018-11-07 18:54 | Event Note ---
Date: 11/07/18 Discussed with the patient's nurse, blood pressures are reasonable control RAILWAY SWITCHMAN has cleared for discharge, and patient is being discharged Patient needs to see her primary care physician for her medical needs
== END 2018-11-07 14:05 | disposition home or self-care (01) | DRG 786 ==
LOC: TRG 12:39 → APU 16:33 → OB 21:29 → LD 11-03 21:31 → OB 11-05 01:38
PROVIDERS: ADMIT Obstetrics & Gynecology; ATTEND Obstetrics & Gynecology
PROC: 10D00Z1 Extraction of Products of Conception, Low, Open Approach (ICD-10-PCS; principal; 2018-10-31)
PROC: 3E0234Z Introduction of Serum, Toxoid and Vaccine into Muscle, Percutaneous Approach (ICD-10-PCS; 2018-11-01)
DX: O34.211 Maternal care for low transverse scar from previous cesarean delivery (principal); K83.1 Obstruction of bile duct; O26.62 Liver and biliary tract disorders in childbirth; O99.02 Anemia complicating childbirth; D64.9 Anemia, unspecified; O99.214 Obesity complicating childbirth; O69.81X0 Labor and delivery complicated by cord around neck, without compression, not applicable or unspecified; E66.9 Obesity, unspecified; Z3A.37 37 weeks gestation of pregnancy; Z37.0 Single live birth; Z23 Encounter for immunization; Z82.49 Family history of ischemic heart disease and other diseases of the circulatory system
CPT/HCPCS: 36415; 76815; 76819; 80053; 80074; 80076; 80307; 81001; 82565; 83615; 83735; 84450; 84460; 84550; 85014; 85018; 85027; 85049; 86850; 86900; 86901; 90471; 90715; G0378; J0360; J0690; J1100; J1885; J2370; J2405; J2590; J2765; J3475; J7120; J7121